=== PATIENT | female | born 1985 | race Caucasian/White ===

== ENCOUNTER 2022-09-29 15:34 | Emergency (ER) | payer OTHER ==
[~2022-09-29] VITALS: Ht 175.3 cm; Wt 77.3 kg
[2022-09-29] MEDS ORDERED: NS 1,000 ML IV ONE (16:35)
[2022-09-29] MEDS ORDERED: PIPERACILLIN/TAZOBACTAM SOD 4.5 GM in D5W MINI-BAG PLUS 50 ML IV ONE (16:35)
[2022-09-29 17:19] LABS: BASO % 0.3 % (0.0-1.0); EOS % 0.1 % (0.0-3.0); HEMATOCRIT 44.5 % (36.0-47.0); HEMOGLOBIN 14.9 g/dl (12.0-15.5); LYMPH % 17.1 % (24.0-44.0); MEAN CORPUSCULAR HEMOGLOBIN 32.7 pg (27.0-33.0); MEAN CORPUSCULAR HGB CONC 33.5 g/dl (32.0-36.5); MEAN CORPUSCULAR VOLUME 97.8 fl (80.0-96.0); MONO % 4.9 % (2.0-8.0); NEUTROPHILS % 77.1 % (36.0-66.0); PLATELET COUNT, AUTOMATED 257 10^3/uL (150-450); RED BLOOD COUNT 4.55 10^6/uL (4.00-5.40); WHITE BLOOD COUNT 13.5 10^3/uL (4.0-10.0)
[2022-09-29 17:20] LABS: BLOOD UREA NITROGEN 10 MG/DL (9-23); CREATININE FOR GFR 0.73 MG/DL (0.55-1.30); GLOMERULAR FILTRATION RATE > 60.0 (>60); GLUCOSE, FASTING 92 MG/DL (60-100); LYMPH # 2.3 10^3/uL (1.5-5.0); MONO # 0.7 10^3/uL (0.0-0.8); NEUTROPHILS # 10.4 10^3/uL (1.5-8.5); SODIUM LEVEL 139 MMOL/L (136-145)
[2022-09-29 17:21] LABS: CARBON DIOXIDE LEVEL 29 MMOL/L (20-31); CHLORIDE LEVEL 103 MMOL/L (98-107); HCG, SERUM QUALITATIVE NEGATIVE (NEGATIVE)
[2022-09-29] MEDS ORDERED: CIPR-249 PO (18:08)
[2022-09-29] MEDS ORDERED: METR-265 PO (18:08)
[2022-09-29 19:11] VITALS: BP 123/63
== END 2022-09-29 19:12 | disposition home or self-care (01) ==
LOC: M ED 15:34
DX: K57.32 Diverticulitis of large intestine without perforation or abscess without bleeding (principal); Z87.442 Personal history of urinary calculi
CPT/HCPCS: 74176; 80048; 81000; 81001; 84703; 85025; 87086; 96365; 96366; 99284; J2543